=== PATIENT | male | born 1950 | race Two or more races ===

== ENCOUNTER 2019-02-05 09:05 | Outpatient (CLI) | payer OTHER | END 2019-02-05 09:07 | disposition home or self-care (01) | LOC: RAD 09:05 | DX: N20.0 Calculus of kidney (principal) ==

== ENCOUNTER 2019-05-29 08:39 | Outpatient (CLI) | payer OTHER | END 2019-05-29 09:00 | disposition home or self-care (01) | LOC: RAD 08:39 | DX: J98.4 Other disorders of lung (principal) ==